=== PATIENT | male | born 1995 | race Caucasian/White ===

== ENCOUNTER 2019-10-27 15:09 | Emergency (ER) | payer OTHER ==
[~2019-10-27] VITALS: Ht 172.7 cm; Wt 136.1 kg
[2019-10-27] MEDS ORDERED: BACTRIM DS TAB1 EACH PO (18:10)
== END 2019-10-27 18:18 | disposition home or self-care (01) ==
LOC: ER 15:09
DX: L03.113 Cellulitis of right upper limb (principal); L02.511 Cutaneous abscess of right hand

== ENCOUNTER 2019-10-29 14:19 | Outpatient (CLI) | payer OTHER ==
[~2019-10-29 14:19] MED LIST: BACTRIM DS TAB1 EACH PO
== END 2019-10-29 14:25 | disposition home or self-care (01) ==
LOC: LAB 14:19
DX: L02.511 Cutaneous abscess of right hand (principal)

== ENCOUNTER 2020-09-14 09:04 | Outpatient (CLI) | payer OTHER | END 2020-09-14 09:20 | disposition home or self-care (01) | LOC: NUCLEAR 09:04 | PROVIDERS: ATTEND Internal Medicine Geriatric Medicine | DX: I11.9 Hypertensive heart disease without heart failure (principal) ==